=== PATIENT | male | born 1965 | race Caucasian/White ===

== ENCOUNTER 2021-04-24 17:34 | Emergency (ER) | payer OTHER ==
[2021-04-24 19:12] LABS: Absolute Lymphocytes (CBC) 1.5 K/uL (0.7-4.9); Basophils % 0.4 % (0-1.3); Hematocrit 42.2 % (39.6-49.0); Lymphocytes % 20.8 % (15.3-44.8); MPV 8.4 fL (7.6-11.3); RBC Red Blood Cell Count 4.44 M/uL (4.33-5.43)
[2021-04-24 19:15] LABS: Protime INR 1.06
[2021-04-24 19:28] LABS: ALT/SGPT 29 U/L (12-78); Albumin 3.7 g/dL (3.4-5.0); Alkaline Phosphatase 77 U/L (45-117); BUN Blood Urea Nitrogen 9 mg/dL (7-18); Bicarbonate 28 mmol/L (21-32); Bilirubin Direct 0.1 mg/dL (0-0.2); Bilirubin Total 0.6 mg/dL (0.2-1.0); CKMB Creatine Kinase MB 2.3 ng/mL (1.0-3.6); Creatine Phosphokinase 103 U/L (39-308); Glucose Level 83 mg/dL (74-106); Lipase 93 U/L (73-393); Protein, Total 7.5 g/dL (6.4-8.2); Sodium Level 142 mmol/L (136-145); Troponin (Emerg Dept Use Only) < 0.02 ng/mL (0.0-0.045)
[2021-04-24 19:29] LABS: AST/SGOT 18 U/L (15-37); Magnesium 2.2 mg/dL (1.8-2.4); Potassium 3.5 mmol/L (3.5-5.1)
--- NOTE | 2021-04-24 22:18 | ER ---
Nurse's Notes [facility] Name: Raymond Do Age: 56 yrs Sex: Male : 1965 Arrival Date: 04/24/2021 Time: 17:38 Bed 2 Private MD: Diagnosis: Heat exhaustion, unspecified Presentation: 04/24 18:25 Chief complaint: Patient states: Overheated at work around 16:20. Pt had syncopal kg episode witnessed by his boss. Pt denies LOC or hitting his head. Coronavirus screen: Client denies travel out of the [place] in the last 14 days. At this time, unable to obtain information related to travel outside the [place] At this time, the client does not indicate any symptoms associated with coronavirus-19. Ebola Screen: Patient negative for fever greater than or equal to 101.5 degrees Fahrenheit, and additional compatible Ebola Virus Disease symptoms Patient denies exposure to infectious person. Patient denies travel to an Ebola-affected area in the 21 days before illness onset. Initial Sepsis Screen: Does the patient meet any 2 criteria? No. Patient's initial sepsis screen is negative. Does the patient have a suspected source of infection? No. Patient's initial sepsis screen is negative. Risk Assessment: Do you want to hurt yourself or someone else? Patient reports no desire to harm self or others. Onset of symptoms was April 24, 2021 at 16:20. 18:25 Method Of Arrival: Wheelchair kg 18:25 Method Of Arrival: EMS: [facility] kg 18:25 Acuity: MAXIMILIAN 3 kg Triage Assessment: 18:29 General: Appears in no apparent distress. Behavior is calm, cooperative, appropriate kg for age, quiet. Pain: Denies pain. Historical: - Allergies: 18:29 No Known Allergies; kg - Home Meds: 18:29 None [Active]; kg - PMHx: 18:29 None; kg - PSHx: 18:29 None; kg - Immunization history:: Adult Immunizations up to date, Client reports receiving the 2nd dose of the Covid vaccine. - Social history:: Smoking status: Patient denies any tobacco usage or history of. Patient uses alcohol, occasionally. - Family history:: not pertinent. Screenin:31 Abuse screen: Denies threats or abuse. Denies injuries from another. Nutritional kg screening: No deficits noted. Tuberculosis screening: No symptoms or risk factors identified. Fall Risk Fall in past 12 months (25 points). No secondary diagnosis (0 pts). IV access (20 points). Ambulatory Aid- None/Bed Rest/Nurse Assist (0 pts). Gait- Normal/Bed Rest/Wheelchair (0 pts) Mental Status- Oriented to own ability (0 pts). Total Glasgow Fall Scale indicates No Risk (0-24 pts). Assessment: 22:10 General: Appears in no apparent distress. Behavior is calm, cooperative, appropriate ad5 for age. Pain: Denies pain. Neuro: No deficits noted. 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 Pt denies c/o at this time. . Cardiovascular: No deficits noted. Capillary refill < 3 seconds Patient's skin is warm and dry. Respiratory: No deficits noted. Airway is patent Respiratory effort is even, unlabored, Respiratory pattern is regular, symmetrical. GI: No deficits noted. No signs and/or symptoms were reported involving the gastrointestinal system. : No deficits noted. No signs and/or symptoms were reported regarding the genitourinary system. Derm: Skin is pink, warm \T\ dry. Musculoskeletal: No deficits noted. No signs and/or symptoms reported regarding the musculoskeletal system. Vital Signs: 18:25 BP 139 / 92; Pulse 58; Resp 20; Temp 98.1(O); Pulse Ox 100% on R/A; Weight 68.04 kg kg (R); Height 5 ft. 4 in. (162.56 cm) (R); Pain 0/10; 22:33 BP 130 / 78; Pulse 60; Resp 18; Pulse Ox 98% on R/A; ea 18:25 Body Mass Index 25.75 (68.04 kg, 162.56 cm) kg ED Course: 17:38 Patient arrived in ED. as 18:29 Triage completed. kg 18:29 Arm band placed on right wrist. kg 18:31 Patient has correct armband on for positive identification. kg 18:31 Maintain EMS IV. Dressing intact. Good blood return noted. Site clean \T\ dry. Gauge \T\ kg site: 20 L AC. 22:03 Stepan Ennis is Primary Nurse. ad5 22:04 Talha Fields MD is Attending Physician. ma2 22:33 No provider procedures requiring assistance completed. IV discontinued, intact, ea bleeding controlled, No redness/swelling at site. Pressure dressing applied. Administered Medications: No medications were administered Outcome: 22:17 Discharge ordered by . ma2 22:33 Discharged to home ambulatory, with family. ea 22:33 Condition: stable 22:33 Discharge instructions given to patient, family, Instructed on discharge instructions, follow up and referral plans. Demonstrated understanding of instructions, follow-up care. 22:34 Patient left the ED. ea Signatures: Angelique Evangelista Elena RN RN Talha Stanley MD MD ma Loyda Carter RN RN Stepan Lopez ad5 Corrections: (The following items were deleted from the chart) 18:33 18:25 Acuity: MAXIMILIAN 4 kg kg
--- NOTE | 2021-04-24 22:18 | EDPHYS ---
Physician Documentation [facility] Name: Raymond Do Age: 56 yrs Sex: Male : 1965 Arrival Date: 04/24/2021 Time: 17:38 Bed 2 Private MD: ED Physician Talha Fields HPI: 04/24 22:16 This 56 yrs old Male presents to ER via EMS with complaints of Heat Exposure. ma2 22:16 The patient presents with feeling faint, generalized weakness. Onset: The ma2 symptoms/episode began/occurred gradually, 3 hour(s) ago. Associated signs and symptoms: Pertinent negatives: ataxia, diaphoresis, head injury, headache, numbness, palpitations, , syncope. Severity of symptoms: At their worst the symptoms were very mild in the emergency department the symptoms have resolved Fluid. The patient has not experienced similar symptoms in the past. Historical: - Allergies: 18:29 No Known Allergies; kg - Home Meds: 18:29 None [Active]; kg - PMHx: 18:29 None; kg - PSHx: 18:29 None; kg - Immunization history:: Adult Immunizations up to date, Client reports receiving the 2nd dose of the Covid vaccine. - Social history:: Smoking status: Patient denies any tobacco usage or history of. Patient uses alcohol, occasionally. - Family history:: not pertinent. ROS: 22:16 Constitutional: Negative for fever, chills, and weight loss. ma2 22:16 All other systems are negative. Exam: 22:16 Constitutional: This is a well developed, well nourished patient who is awake, alert, ma2 and in no acute distress. Head/Face: Normocephalic, atraumatic. Eyes: Pupils equal round and reactive to light, extra-ocular motions intact. Lids and lashes normal. Conjunctiva and sclera are non-icteric and not injected. Cornea within normal limits. Periorbital areas with no swelling, redness, or edema. ENT: Nares patent. No nasal discharge, no septal abnormalities noted. Tympanic membranes are normal and external auditory canals are clear. Oropharynx with no redness, swelling, or masses, exudates, or evidence of obstruction, uvula midline. Mucous membranes moist. Neck: Trachea midline, no thyromegaly or masses palpated, and no cervical lymphadenopathy. Supple, full range of motion without nuchal rigidity, or vertebral point tenderness. No Meningismus. Chest/axilla: Normal chest wall appearance and motion. Nontender with no deformity. No lesions are appreciated. Cardiovascular: Regular rate and rhythm with a normal S1 and S2. No gallops, murmurs, or rubs. Normal PMI, no JVD. No pulse deficits. Respiratory: Lungs have equal breath sounds bilaterally, clear to auscultation and percussion. No rales, rhonchi or wheezes noted. No increased work of breathing, no retractions or nasal flaring. Abdomen/GI: Soft, non-tender, with normal bowel sounds. No distension or tympany. No guarding or rebound. No evidence of tenderness throughout. Back: No spinal tenderness. No costovertebral tenderness. Full range of motion. MS/ Extremity: Pulses equal, no cyanosis. Neurovascular intact. Full, normal range of motion. Neuro: Awake and alert, GCS 15, oriented to person, place, time, and situation. Cranial nerves II-XII grossly intact. Motor strength 5/5 in all extremities. Sensory grossly intact. Cerebellar exam normal. Normal gait. Vital Signs: 18:25 BP 139 / 92; Pulse 58; Resp 20; Temp 98.1(O); Pulse Ox 100% on R/A; Weight 68.04 kg kg (R); Height 5 ft. 4 in. (162.56 cm) (R); Pain 0/10; 22:33 BP 130 / 78; Pulse 60; Resp 18; Pulse Ox 98% on R/A; ea 18:25 Body Mass Index 25.75 (68.04 kg, 162.56 cm) kg MDM: 22:04 Patient medically screened. ma2 22:16 Differential diagnosis: generalized weakness, hyperventilation, hypovolemia, idiopathic ma2 dizziness, vertigo. Data reviewed: vital signs, EMS record. Counseling: I had a detailed discussion with the patient and/or guardian regarding: the historical points, exam findings, and any diagnostic results supporting the discharge/admit diagnosis, the presence of at least one elevated blood pressure reading (>120/80) during this emergency department visit. Response to treatment: the patient's symptoms have resolved after treatment. 04/24 18:32 Order name: Basic Metabolic Panel; Complete Time: 21:42 kg 04/24 18:32 Order name: CBC with Diff; Complete Time: 21:42 kg 04/24 18:32 Order name: CPK; Complete Time: :42 kg 04/24 18:32 Order name: Ckmb; Complete Time: :42 kg 04/24 18:32 Order name: Hepatic Function; Complete Time: :42 kg 04/24 18:32 Order name: Lipase; Complete Time: :42 kg 04/24 18:32 Order name: Magnesium; Complete Time: :42 kg 04/24 18:32 Order name: Protime (+inr); Complete Time: :42 kg 04/24 18:32 Order name: Ptt, Activated; Complete Time: :42 kg 04/24 18:32 Order name: Troponin (emerg Dept Use Only); Complete Time: :42 kg 04/24 18:32 Order name: EKG; Complete Time: 18:33 kg 04/24 18:32 Order name: EKG - Nurse/Tech; Complete Time: 22:04 kg 04/24 18:32 Order name: IV Saline Lock; Complete Time: 22:04 kg 04/24 18:32 Order name: Labs collected and sent; Complete Time: 22:04 kg 04/24 18:32 Order name: NPO; Complete Time: 22:04 kg 04/24 18:32 Order name: O2 Sat Monitoring; Complete Time: 22:04 kg Administered Medications: No medications were administered Disposition Summary: 04/24/21 22:17 Discharge Ordered Location: Home ma2 Condition: Stable ma2 Diagnosis - Heat exhaustion, unspecified ma2 Followup: ma2 - With: Private Physician - When: Tomorrow - Reason: Continuance of care Discharge Instructions: - Discharge Summary Sheet ea - Preventing Heat Exhaustion, Adult ma2 Forms: - Work release form ea - Medication Reconciliation Form ma2 - Thank You Letter ma2 - Antibiotic Education ma2 - Prescription Opioid Use ma2 Signatures: Dispatcher [employer] Eliza Collins, RESIDENTIAL MORTGAGE UNDERWRITER-C RESIDENTIAL MORTGAGE UNDERWRITER-CkTalha Kat MD MD ma2 Loyda Carter, RN RN kg
--- NOTE | 2021-04-25 07:29 | EKG ---
Test Date: 2021-04-24 Test Time: 19:41:59 Anodiser: NAILA MEASUREMENT RESULTS: Intervals: Rate: 44 CA: 150 QRSD: 90 QT: 444 QTc: 379 [place]: P: 36 CA: 150 QRS: 65 T: 41 INTERPRETIVE STATEMENTS: Marked sinus bradycardia Nonspecific T wave abnormality Abnormal ECG No previous ECG available for comparison Electronically Signed On 04-25-21 07:28:09 CDT by Yosef Meza
[2021-04-25 17:02] VITALS: TEMP 98.1
[2021-04-25 17:04] VITALS: BP 130/78; O2SAT 98
== END 2021-04-24 22:34 | disposition home or self-care (01) ==
LOC: ER 17:34
DX: T67.5XXA Heat exhaustion, unspecified, initial encounter (principal)
CPT/HCPCS: 36415; 80048; 80076; 82550; 82553; 83690; 83735; 84484; 85025; 85610; 85730; 93005; 99283